=== PATIENT | male | born 1980 | race Caucasian/White ===

== ENCOUNTER 2016-12-02 08:45 | Emergency (ER) | payer OTHER ==
[~2016-12-02] VITALS: Ht 182.9 cm; Wt 133.8 kg
[2016-12-02] MEDS ORDERED: BUSPIRONE HCL7.5 MG PO (09:04)
[2016-12-02] MEDS ORDERED: BUPROPION XL300 MG PO (09:04)
[2016-12-02] MEDS ORDERED: HYDROCODON-ACE1 EA10 PO (09:04)
[2016-12-02] MEDS ORDERED: IBUPROFEN800 MG PO (09:04)
[2016-12-02] MEDS ORDERED: HYDROCHLOROTHIA25 MG PO (09:04)
[2016-12-02] MEDS ORDERED: VITAMIN D35000 UNIT PO (09:05)
[2016-12-02] MEDS ORDERED: VITAMIN B-1100 M1 PO (09:06)
[2016-12-02] MEDS ORDERED: TYLENOL EXTRA500 MG PO (09:06)
[2016-12-02] MEDS ORDERED: METHYLPREDNISOLO4 M1 PO (09:11)
[2016-12-02] MEDS ORDERED: PERCOCET 5-3251 EACH PO (09:11)
== END 2016-12-02 09:25 | disposition home or self-care (01) ==
LOC: ED 08:45
DX: M79.671 Pain in right foot (principal); M79.672 Pain in left foot; Z87.891 Personal history of nicotine dependence
CPT/HCPCS: 99283

== ENCOUNTER 2017-03-02 18:12 | Emergency (ER) | payer OTHER ==
[~2017-03-02] VITALS: Ht 182.9 cm; Wt 136.1 kg
[~2017-03-02 18:12] MED LIST: BUPROPION XL300 MG PO; BUSPIRONE HCL7.5 MG PO; HYDROCHLOROTHIA25 MG PO; HYDROCODON-ACE1 EA10 PO; IBUPROFEN800 MG PO; METHYLPREDNISOLO4 M1 PO; PERCOCET 5-3251 EACH PO; TYLENOL EXTRA500 MG PO; VITAMIN B-1100 M1 PO; VITAMIN D35000 UNIT PO
== END 2017-03-02 18:51 | disposition home or self-care (01) ==
LOC: ED 18:12
PROC: 0HQGXZZ Repair Left Hand Skin, External Approach (ICD-10-PCS; principal; 2017-03-02)
DX: S61.311A Laceration without foreign body of left index finger with damage to nail, initial encounter (principal); Z87.891 Personal history of nicotine dependence; Z79.899 Other long term (current) drug therapy; W26.0XXA Contact with knife, initial encounter
CPT/HCPCS: 12001; 90471; 90715; 99282

== ENCOUNTER 2017-04-06 17:20 | Emergency (ER) | payer OTHER ==
[~2017-04-06] VITALS: Ht 182.9 cm; Wt 137.4 kg
[2017-04-06] MEDS ORDERED: INDOMETHACIN50 MG PO (17:53)
[2017-04-06] MEDS ORDERED: NORCO 7.5-3251 EACH PO (17:53)
== END 2017-04-06 18:05 | disposition home or self-care (01) ==
LOC: ED 17:20
DX: M10.9 Gout, unspecified (principal); I10 Essential (primary) hypertension; Z98.890 Other specified postprocedural states; Z79.899 Other long term (current) drug therapy
CPT/HCPCS: 99283

== ENCOUNTER 2017-04-13 07:53 | Emergency (ER) | payer OTHER ==
[~2017-04-13] VITALS: Ht 182.9 cm; Wt 137.4 kg
[~2017-04-13 07:53] MED LIST changes: +INDOMETHACIN50 MG PO; +NORCO 7.5-3251 EACH PO
[2017-04-13] MEDS ORDERED: NORCO 7.5-3251 EACH PO (08:41)
[2017-04-13] MEDS ORDERED: COLCHICINE0.6 M1 PO (08:41)
[2017-04-13] MEDS ORDERED: PREDNISONE20 MG PO (08:41)
== END 2017-04-13 09:32 | disposition home or self-care (01) ==
LOC: ED 07:53
DX: M76.61 Achilles tendinitis, right leg (principal); I10 Essential (primary) hypertension; Z98.890 Other specified postprocedural states; Z79.899 Other long term (current) drug therapy; M79.672 Pain in left foot
CPT/HCPCS: 73630; 99283; J7512

== ENCOUNTER 2020-10-21 09:52 | Emergency (ER) | payer BC ==
[~2020-10-21] VITALS: Ht 182.9 cm; Wt 137.4 kg
[~2020-10-21 09:52] MED LIST changes: +COLCHICINE0.6 M1 PO; +PREDNISONE20 MG PO
[2020-10-21] MEDS ORDERED: IRBESARTAN75 MG PO (11:12)
[2020-10-21] MEDS ORDERED: VENLAFAXINE HCL75 M1 PO (11:12)
[2020-10-21] MEDS ORDERED: ONDANSETRON ODT4 MG PO (11:12)
[2020-10-21] MEDS ORDERED: ALLOPURINOL300 MG PO (11:12)
[2020-10-21] MEDS ORDERED: OMEPRAZOLE20 MG PO (11:13)
[2020-10-21] MEDS ORDERED: SILDENAFIL20 MG PO (11:13)
== END 2020-10-21 13:57 | disposition home or self-care (01) ==
LOC: ED 09:52
DX: R10.9 Unspecified abdominal pain (principal); I10 Essential (primary) hypertension; Z79.899 Other long term (current) drug therapy; Z79.52 Long term (current) use of systemic steroids
CPT/HCPCS: 74176; 80053; 81001; 85025; 96374; 96375; 99284-25; J1170; J1885; J2405; J7030

== ENCOUNTER 2024-03-01 18:19 | Emergency (ER) | payer BC ==
[~2024-03-01] VITALS: Ht 182.9 cm; Wt 133.4 kg
[~2024-03-01 18:19] MED LIST changes: +ALLOPURINOL300 MG PO; +IRBESARTAN75 MG PO; +OMEPRAZOLE20 MG PO; +ONDANSETRON ODT4 MG PO; +SILDENAFIL20 MG PO; +VENLAFAXINE HCL75 M1 PO
[2024-03-01] MEDS ORDERED: COLCRYS0.6 MG PO (18:32)
[2024-03-01] MEDS ORDERED: ALPRAZOLAM0.25 MG PO (18:33)
[2024-03-01] MEDS ORDERED: PROPRANOLOL HCL10 MG PO (18:33)
[2024-03-01] MEDS ORDERED: ESCITALOPRAM OX10 MG PO (18:33)
[2024-03-01] MEDS ORDERED: CYCLOBENZAPRINE HCL 10 MG TAB PO ONE (19:00)
[2024-03-01] MEDS ORDERED: KETOROLAC TROMETHAMINE 60 MG/2 ML VIAL IM ONE (19:00)
[2024-03-01] MEDS ORDERED: LIDOCAINE HCL 4% 1 EACH PATCH TD ONE (19:15)
[2024-03-01 19:39] LABS: BILIRUBIN, URINE NEGATIVE (negative); BLOOD/HGB, URINE NEGATIVE (Negative); KETONE, URINE TRACE (Negative); LEUK ESTERASE, URINE NEGATIVE (negative); NITRITE, URINE NEGATIVE (negative)
[2024-03-01] MEDS ORDERED: CYCLOBENZAPRINE10 MG PO (19:57)
[2024-03-01] MEDS ORDERED: LIDODERM1 EACH TOP (19:57)
[2024-03-01] MEDS ORDERED: METHYLPREDNISOLO4 M1 PO (19:57)
[2024-03-01] MEDS ORDERED: HYDROCODONE BIT/ACETAMINOPHEN 5/325 MG 1 TAB HOME.PACK PO ONE (20:00)
[2024-03-01 20:17] VITALS: BP 156/96
== END 2024-03-01 20:17 | disposition home or self-care (01) ==
LOC: ED 18:19
PROVIDERS: Internal Medicine
DX: G57.02 Lesion of sciatic nerve, left lower limb (principal); I10 Essential (primary) hypertension; Z79.899 Other long term (current) drug therapy
CPT/HCPCS: 81003; 96372; 99283; A9270; J1885